=== PATIENT | male | born 1955 | race Caucasian/White ===

== ENCOUNTER 2024-10-09 14:12 | Emergency (ER) | payer MEDICARE, MEDICAID ==
[~2024-10-09] VITALS: Ht 167.6 cm; Wt 82.0 kg
[2024-10-09 14:22] VITALS: BP 148/76; PULSE 90; RESP 18; TEMP 37.2; O2SAT 98
== END 2024-10-09 18:27 | disposition home or self-care (01) ==
LOC: ER 14:12
DX: I10 Essential (primary) hypertension (principal); F10.129 Alcohol abuse with intoxication, unspecified; Y90.9 Presence of alcohol in blood, level not specified
CPT/HCPCS: 99283